=== PATIENT | male | born 1950 | race Caucasian/White ===

== ENCOUNTER 2018-11-06 19:01 | Emergency (ER) | payer MEDICARE, BC ==
--- NOTE | 2018-11-06 20:31 | ED ---
HPI Chest Pain - HPI Summary HPI Summary: Patient is a 68 y/o M presenting to ED with complaints of diffuse chest tightness onsetting today at around 1630. He notes that he had orthopedic procedure today, reattachment of right leg quadricep muscle to patella. Patient states that he got home from procedure at around 1500. Patient states that after chest pain onset, he stood up, which seemed to provide relief in chest pain. He states that he went into car with his , and at this point chest pain worsened. In the room, he states that chest pain was present while in waiting room but once more lessened when he got up. Chest pain is still present in the room. On triage, "associated SOB" is reported but in the room patient denies SOB. On triage, "Pt denies N/V diaphoresis" and, "Pt reports hx of anxiety, states that he feels anxious". PMHx of HTN, patient is on medication for high cholesterol. No PMHx of cardiac issues, FMHx of HTN and cardiac issues in father, brothers. Patient notes that he has not had a cardiac stress test previously. On triage, pain is rated 3/10, nothing is noted to aggravate/ alleviate Sx. Home medications and allergies are reviewed. - History of Current Complaint Chief Complaint: EDChestPainROMI Time Seen by Provider: 11/06/18 20:06 Hx Obtained From: Patient Onset/Duration: Started Hours Ago - 1630 today, Still Present Timing: Constant, Lasting Hours - 1630 today Initial Severity: Mild - 3/10 Current Severity: Mild - 3/10 Pain Intensity: 3 Pain Scale Used: 0-10 Numeric - 3/10 Chest Pain Location: Diffuse Character: Tightness Aggravating Factor(s): Nothing Alleviating Factor(s): Nothing Associated Signs and Symptoms: Positive: Chest Pain, Anxiety. Negative: Shortness of Breath, Diaphoresis, Nausea, Vomiting - Allergy/Home Medications Allergies/Adverse Reactions: Allergies Allergy/AdvReac Type Severity Reaction Status Date / Time No Known Allergies Allergy Verified 11/06/18 19:23 Home Medications: Home Medications Ketorolac TAB * [Toradol TAB *] 15 mg PO Q6H 11/06/18 [History Confirmed ] oxyCODONE TAB* [Roxycodone TAB 5 mg*] 5 mg PO Q4H PRN 11/06/18 [History Confirmed 11/06/18] PMH/Surg Hx/FS Hx/Imm Hx Cardiovascular History: Reports: Hx Hypertension Sensory History: Denies: Hx Legally Blind, Hx Deafness Opthamlomology History: Denies: Hx Legally Blind EENT History: Denies: Hx Deafness Psychiatric History: Reports: Hx Anxiety - Surgical History Surgery Procedure, Year, and Place: 11/06/18 - reattachment of right leg quadricep muscle to patella Infectious Disease History: No Infectious Disease History: 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 GENERAL: Patient is a well-developed and nourished male who is lying comfortable in the stretcher. Patient is not in any acute respiratory distress. Brace and lynn bandage over right knee is noted. HEAD AND FACE: No signs of trauma. No ecchymosis, hematomas or skull depressions. No sinus tenderness. EYES: PERRLA, EOMI x 2, No injected conjunctiva, no nystagmus. EARS: Hearing grossly intact. Ear canals and tympanic membranes are within normal limits. MOUTH: Oropharynx within normal limits. NECK: Supple, trachea is midline, no adenopathy, no JVD, no carotid bruit, no c- spine tenderness, neck with full ROM. CHEST: Symmetric, no tenderness at palpation LUNGS: Clear to auscultation bilaterally. No wheezing or crackles. CVS: Regular rate and rhythm, S1 and S2 present, no murmurs or gallops appreciated. ABDOMEN: Soft, non-tender. No signs of distention. No rebound no guarding, and no masses palpated. Bowel sounds are normal. EXTREMITIES: FROM in all major joints, no edema, no cyanosis or clubbing. NEURO: Alert and oriented x 3. No acute neurological deficits. Speech is normal and follows commands. SKIN: Dry and warm Triage Information Reviewed: Yes Vital Signs On Initial Exam: Initial Vitals Temp Pulse Resp BP Pulse Ox 98.0 F 62 16 165/82 96 11/06/18 19:19 11/06/18 19:19 11/06/18 19:19 11/06/18 19:19 11/06/18 19:19 Vital Signs Reviewed: Yes Diagnostics - Vital Signs Vital Signs Temp Pulse Resp BP Pulse Ox 11/06/18 19:19 98.0 F 62 16 165/82 96 - Laboratory Result Diagrams: 11/06/18 20:26 11/06/18 20:26 Lab Statement: Any lab studies that have been ordered have been reviewed, and results considered in the medical decision making process. - Radiology chest x-ray Radiology Interpretation Completed By: ED Physician Summary of Radiographic Findings: no acute process, pending official report - EKG 192 Cardiac Rate: NL - rate of 63 BPM EKG Rhythm: Sinus Rhythm Summary of EKG Findings: EKG showed sinus rhythm with rate of 63 BPM, normal axis, normal interval, no ischemic changes. Re-Evaluation - Re-Evaluation First Eval Re-Evaluation Time: 21:12 Change: Unchanged Comment: Updated on test results so far, will await results of second trop. Second Eval Re-Evaluation Time: 00:16 Comment: Second trop was negative, patient will be discharged to home for follow up with [facility] machine operator for stress test and PCP. Patient is agreeable with this plan. Chest Pain Course/Dx - Course Course Of Treatment: Patient is a 68 y/o M presenting to ED with complaints of diffuse chest tightness onsetting today at around 1630. He notes that he had orthopedic procedure today, reattachment of right leg quadricep muscle to patella. Patient states that he got home from procedure at around 1500. Patient states that after chest pain onset, he stood up, which seemed to provide relief in chest pain. He states that he went into car with his , and at this point chest pain worsened. In the room, he states that chest pain was present while in waiting room but once more lessened when he got up. Chest pain is still present in the room. On triage, "associated SOB" is reported but in the room patient denies SOB. On triage, "Pt denies N/V diaphoresis" and, "Pt reports hx of anxiety, states that he feels anxious". PMHx of HTN, patient is on medication for high cholesterol. No PMHx of cardiac issues, FMHx of HTN and cardiac issues in father, brothers. Patient notes that he has not had a cardiac stress test previously. On physical exam, patient is noted to have brace and lynn bandage over right knee. CXR showed no acute process. EKG showed sinus rhythm with rate of 63 BPM, normal axis, normal interval, no ischemic changes. Labs showed WBC 11.5, absolute neuts 10.5 absolute lymphs 0.8, sodium 134, BUN/ creatinine 25.3, glucose 126, magnesium 1.7. Both trops were negative. Second trop was negative, patient will be discharged to home for follow up with halver machine operator for stress test and PCP. Patient is agreeable with this plan. - Diagnoses Provider Diagnoses: Chest pain Discharge - Sign-Out/Discharge Documenting (check all that apply): Patient Departure - discharge Patient Received Moderate/Deep Sedation with Procedure: No - NO PROCEDURES DONE - Discharge Plan Condition: Stable Disposition: HOME Patient Education Materials: Chest Pain (ED) Referrals: Darnell Jacob MD [Primary Care Provider] - 2 Days Gee Blake MD [Medical Doctor] - 2 Days Additional Instructions: RETURN TO EMERGENCY DEPARTMENT FOR ANY NEW OR WORSENING SYMPTOMS. FOLLOW UP WITH [employer] ASSISTANT FOR STRESS TEST AND PRIMARY CARE PHYSICIAN IN 1-2 DAYS. - Attestation Statements Document Initiated by Scribe: Yes Documenting Scribe: ADOLFO HERRERA Provider For Whom Scribe is Documenting (Include Credential): PURVI SANDOVAL MD Scribe Attestation: I, ADOLFO HERRERA , scribed for PURVI SANDOVAL MD on 11/07/18 at 0141. Status of Scribe Document: Ready
[2018-11-06 20:34] LABS: ABS Basophils 0 10^3/ul (0-0.2); ABS Eosinophils 0 10^3/ul (0-0.6); ABS Lymphocytes 0.8 10^3/ul (1.0-4.8); ABS Monocytes 0.2 10^3/ul (0-0.8); ABS Neutrophils 10.5 10^3/ul (1.5-7.7); ABS Nucleated RBC 0 10^3/ul; Eosinophil % 0.1 %; Hematocrit 42 % (42-52); Hemoglobin 14.4 g/dl (14.0-18.0); Lymphocyte % 6.8 %; Mean Corpuscular HGB Conc 34 g/dl (31-36); Mean Corpuscular Hemoglobin 29 pg (27-31); Mean Corpuscular Volume 84 fL (80-94); Mean Platelet Volume 7.4 fL (7.4-10.4); Nucleated Red Blood Cells % 0; Platelet Count 281 10^3/ul (150-450); Red Blood Count 4.95 10^6/ul (4.00-5.40); Red Cell Distribution Width 13 % (10.5-15); White Blood Count 11.5 10^3/ul (3.5-10.8)
[2018-11-06 20:50] LABS: Activated Partial Thrombo Time 31.5 seconds (26.0-36.3); INR 0.94 (0.77-1.02)
[2018-11-06 20:53] LABS: Albumin 4.3 g/dL (3.2-5.2); BUN/Creatinine Ratio 25.3 (8-20); Calcium 9.3 mg/dL (8.6-10.3); EGFR African American 111.8 (>60); EGFR Non-African American 92.4 (>60); Globulin 2.2 g/dL (2-4); Magnesium 1.7 mg/dL (1.9-2.7); Potassium 3.9 mmol/L (3.5-5.0); Total Bilirubin 0.6 mg/dL (0.2-1.0); Total Protein 6.5 g/dL (6.4-8.9)
[2018-11-07 00:42] VITALS: BP 141/57
== END 2018-11-07 00:42 | disposition home or self-care (01) ==
LOC: ED 19:01
DX: R07.9 Chest pain, unspecified (principal); F41.9 Anxiety disorder, unspecified
CPT/HCPCS: 36415; 71045; 80053; 83735; 83880; 84484; 85025; 85379; 85610; 85730; 93005; 99283